=== PATIENT | male | born 1970 | race Native Hawaiian/Other Pacific Islander ===

== ENCOUNTER 2022-03-31 20:16 | Emergency (ER) | payer BC ==
[~2022-03-31] VITALS: Ht 182.9 cm; Wt 98.9 kg
[2022-03-31 22:40] VITALS: BP 141/76; TEMP 98.9
== END 2022-03-31 22:50 | disposition home or self-care (01) ==
LOC: ED 20:16
DX: M54.59 Other low back pain (principal); G89.29 Other chronic pain; M51.37 Other intervertebral disc degeneration, lumbosacral region
CPT/HCPCS: 96372; 99283; J2270; J2550